=== PATIENT | male | born 1965 | race Caucasian/White ===

== ENCOUNTER → 2018-12-26 08:27 | Outpatient (CLI) | payer BC, SELFPAY ==
[2018-12-20 13:11] VITALS: BMI 29.3
[2018-12-26 09:02] LABS: Hematocrit 44.9 % (40-54); Hemoglobin 15.7 g/dl (13.0-16.5); Mean Corpuscular Hgb 31.2 pg (27.0-32.0); Mean Corpuscular Volume 89.3 fL (80-94); Mean Platelet Vol. 8.9 fl (6.2-12.0); Platelet Count 290 K/mm3 (150-450); RBC Distribution Width CV 12.3 % (11.6-14.6); RBC Distribution Width SD 39.3 fl (35.1-43.9); Red Blood Count 5.03 M/mm3 (4.6-6.2); White Blood Count 7.1 K/mm3 (4.4-11.0)
[2018-12-26 09:03] LABS: Scan Indicated on CBC? Y/N NO
[2018-12-26 09:11] LABS: International Normalized Ratio 0.9; Prothrombin Time (Protime)PT. 12.1 SECONDS (11.7-14.9)
[2018-12-26 09:12] LABS: Partial Thromboplast Time 23.4 Seconds (24.1-36.2)
[2018-12-26 09:23] LABS: ALB/GLOB Ratio 1.2 RATIO (0.9-2.4); AST(SGOT) 42 U/L (15-37); Alanine Aminotransfer ALT/SGPT 93 U/L (16-61); Albumin, Serum 4.3 g/dL (3.2-5.0); Alkaline Phosphatase 79 U/L (45-117); Anion Gap 7 (5-15); BUN 21 mg/dL (7-18); BUN/Creat Ratio 18.8 RATIO (10-20); Calcium,Total 9.1 mg/dL (8.5-10.1); Chloride 107 mmol/L (98-107); Creatinine, Serum 1.12 mg/dL (0.70-1.30); EST Glomerular Filtration Rate 73 mL/min (>60); Est Glom Filt Rate - Afr Amer 89 mL/min (>60); Globulin 3.5 g/dL (2.2-4.2); Glucose 93 mg/dL (74-106); Potassium 4.6 mmol/L (3.5-5.1); Protein, Total 7.8 g/dL (6.4-8.2); Sodium Level 141 mmol/L (136-145); Thyroid Stim Hormone (TSH) 1.52 uIU/mL (0.358-3.74)
[2018-12-27 17:38] LABS: PSA, Total 0.9 ng/mL (0.0-4.0)
== END ==
PROVIDERS: Family Provider Family Medicine; PCP Family Medicine; Referring Provider Surgery; Visit Provider Surgery
DX: R10.9 Unspecified abdominal pain (principal); F10.10 Alcohol abuse, uncomplicated; R53.83 Other fatigue; Z12.5 Encounter for screening for malignant neoplasm of prostate
CPT/HCPCS: 36415; 80053; 84153; 84443; 85027; 85610; 85730

== ENCOUNTER → 2019-01-02 06:40 | Outpatient (CLI) | payer BC, SELFPAY ==
[2018-12-20 13:11] VITALS: BMI 29.3
--- NOTE | 2019-01-02 06:41 | CT_ITS ---
STUDY: CT ABDOMEN AND PELVIS WITH CONTRAST REASON FOR EXAM: Male, 53 years old. Abdomen discomfort. Question right-sided hernia. Surgical cholecystectomy. Abnormal labs. RADIATION DOSAGE (If Supplied By Facility): CTDIvol = ( 16.23 ) mGy, DLP = ( 1156.6 ) mGycm TECHNIQUE: Transaxial images were obtained from the dome of the diaphragm to the symphysis pubis without oral contrast. 100 IV/Oral Isovue 250 was administered. Sagittal and coronal images were reconstructed. Individualized dose optimization techniques were used for this CT. COMPARISON: None. FINDINGS: The visualized lung bases appear unremarkable. The visualized portions of the heart and pericardium are within normal limits. There is mild diffuse decreased hepatic attenuation without evident discrete mass or cyst. The patient is status post cholecystectomy with 1.3 cm distention of the common bowel duct without CT evident etiology, sequence 2, image 32. The spleen is remarkable only for 3 punctate parenchymal calcifications. Normal pancreas. Normal bilateral adrenal glands. Normal right kidney. Normal left kidney. There are a few, small, scattered mesenteric and retroperitoneal lymph nodes. Flat [employer] images, sequence 2, image 61 and 64, sequence 2, image 43 as well as sequence 2, image 27. Normal visualized stomach. Normal small intestine. There are scattered uncomplicated colonic diverticula. The appendix is visualized and appears normal. There is no free fluid. There is no free air. Normal abdominal aorta. Normal inferior vena cava. Normal retroperitoneum. Normal urinary bladder. There is a very tiny fatty periumbilical hernia. There is a fatty right inguinal hernia. There is no acute osseous abnormality. No CT evidence of suspicious lytic or blastic osseous finding. Minimal diffuse spinal degenerative changes are identified. CT/Abdomen/Pelvis WITH Contrast IMPRESSION: Hepatic steatosis. No CT evident discrete hepatic mass or cyst. Splenic punctate calcifications most consistent with sequela of remote infection with prior systemic granulomatous disease. Diverticulosis without evidence of diverticulitis. Normal-appearing appendix. No obstruction. No free fluid. No free air. Multifocal nonspecific mesenteric lymph nodes. Consider follow-up to document stability. For a tiny fatty periumbilical hernia. Fatty right inguinal hernia. Electronically Signed: Tom Skaggs MD at 11:37 EDT , Service support ,
== END ==
PROVIDERS: Family Provider Family Medicine; PCP Family Medicine; Referring Provider Surgery; Visit Provider Surgery
DX: R10.9 Unspecified abdominal pain (principal); R89.9 Unspecified abnormal finding in specimens from other organs, systems and tissues
CPT/HCPCS: 74177; Q9967

== ENCOUNTER 2019-01-06 07:28 | Day surgery (SDC) | payer BC, SELFPAY ==
[2018-12-20 13:11] VITALS: BMI 29.3
--- NOTE | 2018-12-30 06:47 | PCM.HP.BLA ---
Problem List (1) Abdominal pain Status: Acute Qualifiers: History and Physical Date of Admission: 01/06/19 MR#: [id number] Acct: [id number] Name: ADI SHULTZ Rep #: [id number] : 1965 Provider: Souleymane Wesley MD Age/Sex: 53/M Location: [facility] Status: Signed Intake Vital Signs 12/20/18 Height 5 ft 11 in 12/20/18 Weight: 210 lb 9 oz 12/20/18 Body Mass Index (BMI) 29.3 12/20/18 Blood Pressure 132/92 H 12/20/18 Blood Pressure Location Lt brachial 12/20/18 Blood Pressure Position Standing 12/20/18 Respiratory Rate 22 H 12/20/18 Pulse Rate 102 H 12/20/18 Pulse Ox 100 Intake Visit Reasons: R. SIDE ABD PAIN Chief Complaint: right mid abd pain Can Inspector Required: No Is patient in pain?: Yes (constant, dull ) Pain scale (1-10): 3 Allergies No Known Allergies Allergy (Verified 12/20/18 13:12) Medications omeprazole 20 mg capsule,delayed release 20 mg PO DAILY 12/20/18 [History Confirmed 12/20/18] PFSH Medical History Family history of colon cancer in mother (Acute) GERD (gastroesophageal reflux disease) (Acute) Inguinal hernia of right side without obstruction or gangrene (Acute) Abdominal pain (Acute) Fatigue (Acute) GERD (gastroesophageal reflux disease) (Acute) HTN (hypertension) (Chronic) Surgical History History of cholecystectomy (Acute) Family History Mother Colon cancer Social History Smoking Status: Never smoker HPI HPI HPI: ADI SHULTZ, is a 53 M who presents to the office today for surgical consultation regarding right lower quadrant pain and a family history in his mother of colon cancer. Patient is referred by his primary care patient Dr. Lewis Regalado and a written compromise surgical consult recommendations were returned to him. The patient actually has several different concerns. He has a discomfort in the right lower quadrant of the abdomen. He states that it is worse when he sits down and when he bends over he can feel it. 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 He has not noticed any bright red blood per rectum or melena. No change in bowel habits. No change of weight. He has a family history of his mother having had colon cancer at a younger age. The patient is also complaining of a pressure sensation in his privates. He has not noticed any dysuria or hematuria. He is complaining of fatigue not able to achieve similar amounts of work and energy loss. He has had persistent reflux symptoms and is on chronic omeprazole medication. He has never had an upper endoscopy He does not believe that he has had blood work drawn for maybe 3 years. On further discussing features with him he does drink beer daily. He states at least 2-5 beers nightly possibly more. He used to chew tobacco but he quit approximately 1 years ago. States that he never smoked tobacco. HPI HPI HPI: ADI SHULTZ, is a 53 M who presents to the office today for ROS General General: Yes fatigue; no weight change, appetite, colon cancer, breast cancer or weakness HEENT HEENT: No difficulty swallowing, eye injury, eye surgery, swollen glands or hoarseness Endo Endocrine: No thyroid disease, diabetes mellitus, thyroid cancer, Hair loss, heat intolerance or cold intolerance Cardio Cardiovascular: Yes high blood pressure; no murmur, pacemaker, heart disease, atrial fibrillation, heart attack, heart stent, palpitations, shortness of breat with exertion or chest pain Resp Respiratory: No shortness of breath, No sleep apnea, No cough, No COPD, No asthma, No emphysema, No wheezing Gastro Gastrointestinal: Yes abdominal pain, No nausea or vomiting, No diarrhea, No constipation, No blood in stool, Yes acid reflux, No hemorrhoids, No ulcers, Yes gallbladder problem, No black,tarry stools Neuro Neurologic: No weakness Exam Const General: cooperative, anxious Nutritional Appearance: overweight Orientation: alert, awake [facility] Head: normal to inspection Neck Neck: normal visual inspection Carotids: normal carotid upstroke, no bruits Chest Chest palpation & inspection: normal inspection of the chest Resp Effort & Inspection: normal respiratory effort Auscultation: clear to auscultation bilaterally Cardio Rate: regular rate Heart Sounds: no murmurs GI Palpation: soft, no hepatosplenomegaly Auscultation: normal bowel sounds Other: Testicles are descended and not tender or swollen. Small indirect right inguinal hernia detected. Left groin seems to be solid and intact. Skin General: no rashes or lesions noted Neuro General: alert Extrem General: no calf tenderness bilaterally Psych Affect: normal affect Assessment & Plan Problems 1. Chronic fatigue R53.82 2. Right lower quadrant abdominal pain R10.31 3. Inguinal hernia of right side without obstruction or gangrene K40.90 4. Gastroesophageal reflux disease, esophagitis presence not specified K21.9 5. Family history of colon cancer in mother Z80.0 Plan 53-year-old gentleman who is very anxious that he likely had colon cancer causing his right lower quadrant pain. Issues include his reflux disease and fatigue and right lower quadrant abdominal pain and family history of colon cancer in his mother and alcohol use. On clinical exam I was able to detect a right inguinal hernia. I propose for him that we obtain laboratory which will include a CMP, CBC, coags, PSA, and TSH. He has perineal pressure sensation of undetermined etiology. I would anticipate combining a esophagogastroduodenoscopy and colonoscopy with possible biopsy or polypectomy. Careful inspection because of his chronic reflux disease and biopsies as appropriate inspected for possible H. pylori as well. Careful inspection of the colon because the right lower quadrant abdominal pain and family history of colon cancer as well as anticipated careful digital exam of the prostate and attempt to explain perineal pressure. Pending the results of the above I have also proposed for the patient a laparoscopic right inguinal hernia repair with mesh. He is aware of technique and benefits and risks and alternatives. He has had an opting to ask and have questions answered. I am hoping that the above laboratory and testing is not remarkable and I can attribute his right lower quadrant pain to his right inguinal hernia. I very much appreciate the kind opportunity of assisting with his surgical care. We will pursue as noted. The patient was quite anxious throughout his entire office interview. I anticipate pursuing the endoscopic procedures with monitored anesthesia care. Cc: Dr. Lewis Wesley M.D., F.A.C.S. Orders Orders: Colonoscopy Today Z80.0 EGD Today K21.9 Comprehensive Metabolic Profil Today R10.9 Thyroid Stim Hormone (TSH) Today R53.83 Partial Thromboplast Time Today F10.10 Prothrombin Time w/INR Today F10.10 CBC-Complete Blood Cnt No Diff Today R10.9 PSA Serial Monitor Today Z12.5 Coding Level of Care Code Comprehensive,moderate Diagnoses Chronic fatigue R53.82 ??Fatigue type: chronic, unspecified Right lower quadrant abdominal pain R10.31 ??Abdominal location: right lower quadrant Inguinal hernia of right side without obstruction or gangrene K40.90 Gastroesophageal reflux disease, esophagitis presence not specified K21.9 ??Esophagitis presence: esophagitis presence not specified Family history of colon cancer in mother Z80.0 12/20/18 1509 <Electronically signed by Souleymane Wesley MD> Date Souleymane Wesley MD Cosigner Signature: Date (if applicable) CC: Lewis Regalado MD ~ I have re-examined the patient. There are no clinical changes since date of exam
[2019-01-06 07:54] VITALS: BP 122/92; PULSE 86; RESP 16; TEMP 37.8; O2SAT 99; BMI 29.0
--- NOTE | 2019-01-06 08:45 | IMM_PTH ---
PATIENT: ADI SHULTZ LOC: EN U#:[id number] AGE/SX: 53/M ROOM: RE01/06/[address]: Dr. Souleymane Wesley MD : 1965 BED: DIS: 01/06/2019 SPEC #: [id number] RECD: 01/06/19 14:24 STATUS: CARMITA REQ #: [id number] AGUSTÍN: 01/06/19 08:[address]: Souleymane Wesley DEPT: IMMUNOHISTOCHEMISTRY RECD BY: Sarah Bowers ENTERED: 01/06/19 14:24 SP TYPE: IMMUNO OTHR DR: Dr. Lewis Regalado MD Tissues: A - Stomach, NOS Procedures: H Pylori (initial) PHYSICIAN & INSTITUTION [place] [id number] SPECIMEN INFORMATION: Tissue Source: A - Antrum biopsy Clinical Info: Family history colon CA, GERD Specimen Number: [id number] CPT code: 65660 METHODOLOGY: Deparaffinized sections of prefer/formalin-fixed tissue or PAP/DQ stained slides are incubated with monoclonal/polyclonal antibodies/oligonucleotide probes. Localization is made via biotin free immunoperoxidase method. Appropriate controls are performed and reacted as expected. Results on target cell population are indicated in the following table: RESULTS: ANTIBODY / CLONE RESULT Block A H Pylori (polyclonal) negative These tests were developed and their performance characteristics determined by [facility]. They may not have been cleared or approved by the U.S. Food and Drug Administration. The FDA has determined that such clearance or approval is not necessary. INTERPRETATION: A. Antrum biopsy: Negative for Helicobacter pylori organisms. SJ:osiris 01/09/19
--- NOTE | 2019-01-06 08:45 | EGD_PTH ---
PATIENT: ADI SHULTZ LOC: EN U#:[id number] AGE/SX: 53/M ROOM: RE01/06/[address]: Dr. Souleymane Wesley MD : 1965 BED: DIS: 01/06/2019 SPEC #: [id number] RECD: 01/06/19 10:54 STATUS: CARMITA MARIAM #: [id number] AGUSTNÍ: 01/06/19 08:[address]: Souleymane Wesley DEPT: SURGICAL PATHOLOGY RECD BY: Rkaan Zepeda ENTERED: 01/06/19 12:38 SP TYPE: EGD BIOPSY OTHR DR: Dr. Lewis Regalado MD Tissues: A - Gastric mucous membrane B - HERNIA C - Esophageal mucous membrane Procedures: Special Stain Group II Surgery Specimen Level IV Alcian Blue/PAS (control) HEADER OPERATION: Colonoscopy, EGD ([facility]) PRE-OP DIAGNOSIS: Family history colon CA, GERD TISSUE SUBMITTED: A - Antrum biopsy for H. pylori and pathology, B - Hiatal hernia biopsy, C - Distal esophageal biopsy MICROSCOPIC DIAGNOSIS A. Antrum biopsy: Mild gastritis. Mild vascular congestion. See microscopic description and comment. B. Hiatal hernia, biopsy: A fragment of gastroesophageal mucosa with mild chronic inflammation. Intestinal metaplasia (goblet cell metaplasia) is identified. See comment. C. Distal esophageal biopsy: Fragments of gastroesophageal mucosa with extensive intestinal metaplasia (goblet cell metaplasia), consistent with Alavres's esophagus. Chronic inflammation. Negative for dysplasia. See comment. SJ:osiris 01/09/19 COMMENT A. The results of immunohistochemistry for Helicobacter pylori will be reported separately ([id number]). B. The specimen predominantly consists of gastric mucosa. Alcian blue/PAS stain with matched control is used in the evaluation of the specimen. C. Alcian blue/PAS stain with matched control is used in the evaluation of the specimen. MICROSCOPIC DESCRIPTION Slides are reviewed. A. The specimen shows fragments of gastric mucosa with chronic inflammatory cell infiltrates in the lamina propria consisting of lymphocytes and plasma cells, consistent with mild chronic gastritis. Mild vascular congestion is also noted. GROSS DESCRIPTION A - Received in fixative is one container labeled with the patient's name and designated antrum biopsy, H. pylori and path. The specimen consists of one irregular fragment of light villarreal soft tissue that measures 0.3 x 0.3 x 0.1 cm. The specimen is totally submitted in one cassette. B - Received in fixative is one container labeled with the patient's name and designated hiatal hernia biopsy. The specimen consists of one irregular fragment of light villarreal soft tissue that measures 0.3 x 0.3 x 0.1 cm. The specimen is totally submitted in one cassette. C - Received in fixative is one container labeled with the patient's name and designated distal esophageal biopsy. The specimen consists of multiple irregular fragments of light villarreal soft tissue that in aggregate measure 2 x 0.5 x 0.1 cm. The specimen is totally submitted in one cassette. / SJ:rg 01/06/19 TC:3 CPT: 49099 x3, 57045 x2
[2019-01-06 09:15] VITALS: BP 122/92; BP 125/85; PULSE 87; RESP 18; TEMP 36.2; O2SAT 100
--- NOTE | 2019-01-06 09:19 | OP.ENDO_ITS ---
01/06/2019 Lewis Regalado Re : Upper GI endoscopy procedure for Devon Britt Fabricio This procedure was performed on Sunday, January 06, 2019. My impressions and recommendations are as follows: Impressions : - Medium-sized hiatal hernia. 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 Biopsied. - Z-line irregular, 34 cm from the incisors. Approximately 5-6cm long Alvares's and Hiatal hernia - Erythematous mucosa in the antrum. Biopsied. - Normal first portion of the duodenum and second portion of the duodenum. - Duodenal diverticulum. Recommendations : - Discharge patient to home. - Resume previous diet. - Continue present medications. - Telephone my office for pathology results in 1 week. Consider referral for Alvares's ablation My findings are described in the full procedure note, which is enclosed. If I can be of further assistance, please feel free to contact me at Doctor phone number(s): Work: . Sincerely, Souleymane Wesley MD 01/06/2019 9:18:27 AM This report has been signed electronically.
[2019-01-06 09:20] VITALS: BP 122/92; BP 128/88; PULSE 68; RESP 16; O2SAT 98
--- NOTE | 2019-01-06 09:21 | OP.ENDO_ITS ---
01/06/2019 Lewis Regalado Re : Colonoscopy procedure for Devon Alvarezr Fabricio This procedure was performed on Sunday, January 06, 2019. My impressions and recommendations are as follows: Impressions : - Hemorrhoids found on perianal exam. - Diverticulosis in the entire examined colon. - No specimens collected. Recommendations : - Discharge patient to home. - Resume previous diet. - Continue present medications. - Repeat colonoscopy in 5 years for surveillance. No source to explain right lower quadrant pain other than the known right inguinal hernia My findings are described in the full procedure note, which is enclosed. If I can be of further assistance, please feel free to contact me at Doctor phone number(s): Work: . Sincerely, Souleymane Wesley MD 01/06/2019 9:21:16 AM This report has been signed electronically.
[2019-01-06 09:25] VITALS: BP 112/77; BP 122/92; PULSE 70; RESP 16; O2SAT 99
[2019-01-06 09:30] VITALS: BP 122/92; BP 124/90; PULSE 67; RESP 16; TEMP 36.5; O2SAT 98
[2019-01-06 09:53] VITALS: BP 122/92
== END 2019-01-06 10:36 | disposition home or self-care (01) ==
LOC: EN 07:29 → AC 07:30
PROVIDERS: Family Provider Family Medicine; PCP Family Medicine; Referring Provider Family Medicine; Visit Provider Surgery
PROC: 0DJD8ZZ Inspection of Lower Intestinal Tract, Via Natural or Artificial Opening Endoscopic (ICD-10-PCS; CPT 45378; principal; 2019-01-06 08:40)
DX: K22.70 Barrett's esophagus without dysplasia (principal); K22.8 Other specified diseases of esophagus; K29.70 Gastritis, unspecified, without bleeding; K44.9 Diaphragmatic hernia without obstruction or gangrene; K57.30 Diverticulosis of large intestine without perforation or abscess without bleeding; K64.9 Unspecified hemorrhoids; K21.9 Gastro-esophageal reflux disease without esophagitis; K40.90 Unilateral inguinal hernia, without obstruction or gangrene, not specified as recurrent; I10 Essential (primary) hypertension; R53.82 Chronic fatigue, unspecified; Z87.891 Personal history of nicotine dependence; Z80.0 Family history of malignant neoplasm of digestive organs
CPT/HCPCS: 43239; 45378; 88305; 88313; 88342; J7120; J2405

== ENCOUNTER → 2019-01-11 08:08 | Outpatient (CLI) | payer BC, SELFPAY ==
[2018-12-20 13:11] VITALS: BMI 29.3
[2019-01-06 07:54] VITALS: BMI 29.0
--- NOTE | 2019-01-11 08:09 | US_ITS ---
STUDY: ABDOMINAL ULTRASOUND - RIGHT UPPER QUADRANT REASON FOR VISIT: Male, 53 years old. Fatty liver. TECHNIQUE: Ultrasound evaluation of the right upper quadrant was performed with real-time and static parkinson-scale imaging. TECHNICAL QUALITY: Adequate. COMPARISON: Comparison is made with prior CT scan of the abdomen dated January 02, 2019. FINDINGS: Liver: The liver is enlarged and measures 19.8 cm. There is increased echogenicity consistent with fatty infiltration. The bile ducts are within normal limits. There is hepatic color flow. The direction of portal flow is hepatopetal. There is no demonstrated mass lesion. Gallbladder: The patient is status post cholecystectomy. Common Bile Duct (C.B.D.): The common bile duct measures 8.7 mm. Pancreas: Normal size of the head, body and tail of the pancreas. There is increased echogenicity of the pancreas. There is no demonstrated pancreatic mass or cyst. Right Kidney: Normal size of the right kidney. The right kidney measures 10.5 cm x 5.57 x 5.5 cm. Normal renal cortex. The right cortex measures 1.5 cm. There is no demonstrated renal mass or cyst. There is no right hydronephrosis. US/Abdomen Limited IMPRESSION: Hepatomegaly. Diffuse fatty infiltration of the liver. Status post cholecystectomy. Electronically Signed: Antony Rincon, at 14:53 EDT , Service support ,
== END ==
PROVIDERS: Family Provider Family Medicine; PCP Family Medicine; Referring Provider Surgery; Visit Provider Surgery
DX: R10.9 Unspecified abdominal pain (principal); R93.89 Abnormal findings on diagnostic imaging of other specified body structures
CPT/HCPCS: 76705

== ENCOUNTER 2019-10-30 05:57 | Day surgery (SDC) | payer BC, SELFPAY ==
[2019-10-18 09:56] VITALS: BMI 29.0
--- NOTE | 2019-10-25 06:48 | EKG12_ITS ---
Test Reason : PRE OP Blood Pressure : / mmHG Vent. Rate : 072 BPM Atrial Rate : 072 BPM P-R Int : 152 ms QRS Dur : 084 ms QT Int : 380 ms P-R-T Axes : 023 035 041 degrees QTc Int : 416 ms Normal sinus rhythm Normal ECG Confirmed by JUVENCIO WELLER ([id number]), video editor ABNER DIAZ ([id number]) on 10/25/2019 3:07:36 PM Referred By: KATERINA Confirmed By:JUVENCIO WELLER
[2019-10-25 07:25] LABS: Hematocrit 39.7 % (40-54); Hemoglobin 13.6 g/dL (13.0-16.5); Mean Corp Hgb Conc 34.3 g/dL (32-36); Mean Corpuscular Hgb 31.7 pg (27.0-32.0); Mean Corpuscular Volume 92.5 fL (80-94); Mean Platelet Vol. 9.1 fl (6.2-12.0); Platelet Count 236 K/mm3 (150-450); RBC Distribution Width CV 12.1 % (11.6-14.6); Red Blood Count 4.29 M/mm3 (4.6-6.2); White Blood Count 4.5 K/mm3 (4.4-11.0)
[2019-10-25 07:50] LABS: Anion Gap 5 (5-15); BUN 9 mg/dL (7-18); Calcium,Total 8.7 mg/dL (8.5-10.1); Chloride 108 mmol/L (98-107); EST Glomerular Filtration Rate 83 mL/min (>60); Est Glom Filt Rate - Afr Amer 101 mL/min (>60); Glucose 87 mg/dL (74-106); Potassium 3.9 mmol/L (3.5-5.1); Sodium Level 140 mmol/L (136-145)
[2019-10-30] VITALS (8 sets, daily range): BP systolic 123–148; BP diastolic 81–102; PULSE 78–112; RESP 16–18; TEMP 37.2–38.2; O2SAT 93–99; BMI 29.1
--- NOTE | 2019-10-30 06:20 | HP.PCM_ITS ---
Problem List (1) Ventral incisional hernia without obstruction or gangrene Status: Acute (2) Inguinal hernia of right side without obstruction or gangrene Status: Acute History and Physical Date of Admission: 10/30/19 Intake Visit Reasons: update H&P for [facility] Chief Complaint: right mid abd pain Asset Administrator Required: No Is patient in pain?: No (on and off soreness- bilateral groins) Allergies No Known Allergies Allergy (Verified 10/18/19 09:55) Medications omeprazole 20 mg capsule,delayed release 20 mg PO QHS 12/20/18 [History Confirmed 10/18/19] aspirin 325 mg tablet 325 mg PO Q4H PRN 10/18/19 [History Confirmed 10/18/19] [facility] Medical History Family history of colon cancer in mother (Acute) GERD (gastroesophageal reflux disease) (Acute) Inguinal hernia of right side without obstruction or gangrene (Acute) Abdominal pain (Acute) Fatigue (Acute) GERD (gastroesophageal reflux disease) (Acute) HTN (hypertension) (Chronic) Surgical History History of cholecystectomy (Acute) Family History Mother Colon cancer Social History (Updated 10/18/19 @ 10:16 by Souleymane Wesley MD) Smoking Status: Never smoker HPI HPI HPI: ADI SHULTZ, is a 54 M who presents to the office today for ongoing zion gical consultation regarding a known right inguinal hernia and a known incisional umbilical hernia. I previously saw the patient December 2018. A pelvic CT was obtained showing a small incisional umbilical hernia related to a previous laparoscopic cholecystectomy and also demonstrated a fat-containing right inguinal hernia. It demonstrated hepatic steatosis. There is no findings in the left groin. Clinical exam December 20, 2018 did not demonstrated any inguinal hernia on the left.. The patient's complaining of right groin discomfort particular with bending over. It is of note that he wasted 210 pounds with a BMI of 29. He does have somewhat of a bulbous abdomen. HPI HPI HPI: ADI SHULTZ, is a 54 M who presents to the office today for ROS General General: Yes fatigue; no weight change, appetite, colon cancer, breast cancer or weakness HEENT HEENT: No difficulty swallowing, eye injury, eye surgery, swollen glands or hoarseness Endo Endocrine: No thyroid disease, diabetes mellitus, thyroid cancer, Hair loss, heat intolerance or cold intolerance Cardio Cardiovascular: Yes high blood pressure; no murmur, pacemaker, heart disease, atrial fibrillation, heart attack, heart stent, palpitations, shortness of breat with exertion or chest pain Resp Respiratory: No shortness of breath, No sleep apnea, No cough, No COPD, No asthma, No emphysema, No wheezing Gastro Gastrointestinal: Yes abdominal pain, No nausea or vomiting, No diarrhea, No constipation, No blood in stool, Yes acid reflux, No hemorrhoids, No ulcers, Yes gallbladder problem, No black,tarry stools Neuro Neurologic: No weakness Exam Const General: cooperative, no acute distress Nutritional Appearance: average body habitus Orientation: alert, awake, oriented x3 HENMT Head: normal to inspection Resp Effort & Inspection: normal respiratory effort Auscultation: clear to auscultation bilaterally Cardio Rate: regular rate Rhythm: regular rhythm Heart Sounds: no murmurs GI Palpation: soft, no hepatosplenomegaly Auscultation: normal bowel sounds Other: Small reducible incisional umbilical ventral hernia Other: Atrophic testicles bilaterally, reducible right inguinal hernia, solid left groin Neuro Other: Slight tremors noted bilateral hands. Patient otherwise appears to be alert and aware of his situation in place Extrem General: no calf tenderness bilaterally Psych Affect: normal affect Assessment & Plan Problems 1. Inguinal hernia of right side without obstruction or gangrene K40.90 2. Ventral incisional hernia without obstruction or gangrene K43.2 Plan I recommend to the patient a laparoscopic right inguinal herniorrhaphy with mesh in addition to a ventral incisional and umbilical hernia repair with mesh. In detail I have discussed the technique, benefit, risk, alternatives. He has had an opportunity to ask and have questions answered. He is complaining of some mild left groin discomfort. [address] scan and clinical exam did not demonstrate an inguinal hernia on the left. I am not able to detect clinically an inguinal hernia on the left today. At this time I am not anticipating surgical intervention on the left groin. We will schedule and proceed at his discretion. I appreciate the ongoing opportunity of assisting with his surgical care. Cc: Dr. Lewis Wesley M.D., F.A.C.S. Coding Level of Care Code Off vis,est,level 3 Diagnoses Inguinal hernia of right side without obstruction or gangrene K40.90 Ventral incisional hernia without obstruction or gangrene K43.2 10/18/19 1016 <Electronically signed by Souleymane morales MD> Date _ Souleymane Wesley MD I have re-examined the patient. There are no clinical changes since date of exam.
[2019-10-30] MEDS: Lactated Ringers 1,000 ML 100 ML IV ×2 (06:50→09:15)
--- NOTE | 2019-10-30 08:13 | DCINST_ITS ---
Discharge Diet: Light diet - advance as tolerated - if you have questions about your diet instructions, please talk to you doctor. Discharge Activity: May Not Drive - for 3-5 days or while taking narcotic pain medicine. May shower in (days): 1 Lifting Restrictions: 10 pounds Call your doctor if your incision/area has: Continuous Slow Oozing, Sudden Increased Bleeding, Increased Pain/ Swelling, Increased Redness, Foul Smelling Discharge Call your doctor if you observe: Fever of 101 or Higher Suture Line Care: Avoid Pulling/Pushing, Avoid Pinching/Bending Additional Dressing/Incision Instructions:: Change or remove dressing in 4 days. Leave steri-strips in place for 1 week. Allergies/Adverse Reactions: Allergies No Known Allergies Allergy (Verified 10/30/19 06:19) Medications to take at Discharge omeprazole 20 mg capsule,delayed release 20 mg PO QHS 12/20/18 aspirin 325 mg tablet 325 mg PO Q4H PRN 10/18/19 Ibuprofen 600 mg PO PRN PRN 10/24/19 Orders to be completed after discharge: 12 Lead EKG [[facility]] Time Frame: 10/24/19, Facility: [facility], Location: Cardiovascular Services Basic Metabolic Profile (BMP) Time Frame: 10/24/19, Facility: [facility], Location: Laboratory CBC-Complete Blood Cnt No Diff Time Frame: 10/24/19, Facility: [facility], Location: Laboratory Primary Care Physician: Lewis Regalado [Primary Care Provider] - Test Results: Test results from this visit will be discussed in further detail at your follow- up appointment, if applicable. Please Follow Up With: Souleymane Wesley MD - [phone] When: Call to make an appointment to be seen in about 10 days.
[2019-10-30] MEDS: Cefazolin 2 GM in 0.9% Normal Saline 100 ML IV (08:16)
--- NOTE | 2019-10-30 09:51 | PCM.OPRPT ---
Problem List (1) Ventral incisional hernia without obstruction or gangrene Status: Acute (2) Inguinal hernia of right side without obstruction or gangrene Status: Acute Report of Operation Date of Procedure: 10/30/19 Pre-Operative Diagnosis: Indirect right inguinal hernia with cord lipoma. Ventral incisional hernia at the umbilicus Post-Operative Diagnosis: Same Surgery/Procedure Performed:: Laparoscopic right inguinal herniorrhaphy. Ventral incisional umbilical herniorrhaphy with ventralex ST mesh. Bard 3D max lot number [id number]. Reference #[id number]. Expiry date 04/26/2024. Ventralex ST mesh Lot number [id number]. Reference #[id number]. Expiry date 04/26/2021. Secure strap lot number [id number], expiry date April 2021 Description of Surgical Findings:: Timeout and informed consent was obtained. 54-year-old gent was taken out from placement table underwent general endotracheal intubation esthesia. Ancef 2 g were given intravenously. The abdomen was sterilely prepped and draped. Ioban draping was used as well. 0.25% Marcaine mixed with Exparel had already been made up as a solution as there was a nursing understanding that there was much more extensive repair. Local was instilled. A vertical infraumbilical incision was created sharp dissection carried down through the subcu tissue sharp and blunt dissection was used to identify the incisional umbilical hernia the umbilical skin was dissected free. Holding sutures of 0 Vicryl placed. Varies needle inserted and saline drop test performed. The abdomen was insufflated with CO2 to a pressure of 10 mmHg pressure. Katelin trocar inserted 10 lap inserted no evidence of any trocar injuries. There were adhesions of omentum to it in the right upper quadrant from previous cholecystectomy. Left groin appeared to be solid and intact. 5 mm trochars were placed in the left midabdomen right lower quadrant. The peritoneum superior lateral to the internal ring was incised and carried medially this was after a ilioinguinal nerve block was performed. It is also of note that a bilateral tap block was performed under laparoscopic visualization as well. And the peritoneum was incised carried immediately the pain was completely dissected free. A cord lipoma was identified this was dissected free from the internal ring. Hemostasis obtained electrocautery the direct indirect and femoral area nicely dissected free. A right Bard large mesh was selected it was placed those to cover the defect area was secured laterally superiorly and medially with secure strap. I did get some bleeding from the inferior epigastric. This had to be maintained with direct pressure. The offending tach was removed. Hemostasis was finally achieved there was a little bit of a retroperitoneal hematoma. That was stable. The mesh was in good position the peritoneum was approximated to itself with secure strap and hemo-lock clips. Complete obliteration was achieved. A 6.4 cm ventral X was now inserted at the umbilicus. The tails were secured with interrupted 0 Nurolon. The fascia was approximated transversely with the same. Laparoscopic repeat inspection revealed the mesh wanted to curl a little bit so I used secure strap to assure that the mesh was flat. There was some preperitoneal fatty tissue. The abdomen was allowed to deflate of the CO2 trochars removed skin edges approximated opted for Monocryl subdermal stitches Steri-Strips Telfa and OpSite dressings applied. Sponge and instrument and needle counts reported the surgeon be correct. Blood loss minimal. He tolerated the procedure well was taken to the recovery area in Leonela condition without apparent complication. Specimens none. Drains none. Blood loss minimal. Souleymane Wesley M.D., F.A.C.S. Type of Anesthesia:: General, Local Anesthesiologist: Anuj Ballard
[2019-10-30] MEDS: BUPIVACAINE LIPOSOME/PF 20 ML VIAL OPERA.SITE (09:53)
[2019-10-30] MEDS: Bupivacaine 0.25% 30 ML Vial (09:54)
[2019-10-30] MEDS: 0.9% Normal Saline (Pres. free 10 ML Vial (09:54)
[2019-10-30] MEDS: Acetaminophen 325 MG Tablet 650 MG PO (11:16)
== END 2019-10-30 12:35 | disposition home or self-care (01) ==
LOC: SDC 05:57 → AC 06:03
PROVIDERS: PCP Family Medicine; Referring Provider Surgery; Visit Provider Surgery
PROC: 0WQF4ZZ Repair Abdominal Wall, Percutaneous Endoscopic Approach (ICD-10-PCS; CPT 49650; principal; 2019-10-30 07:40)
DX: K40.90 Unilateral inguinal hernia, without obstruction or gangrene, not specified as recurrent (principal); K43.2 Incisional hernia without obstruction or gangrene; D17.6 Benign lipomatous neoplasm of spermatic cord; K21.9 Gastro-esophageal reflux disease without esophagitis; I10 Essential (primary) hypertension; Z79.82 Long term (current) use of aspirin; Z79.899 Other long term (current) drug therapy
CPT/HCPCS: 00840; 49650; 49654; 36415; 80048; 85027; 93005; C1781; J7120; J2405; J3490